=== PATIENT | male | born 1990 | race Caucasian/White ===

== ENCOUNTER 2018-10-27 12:36 | Outpatient (CLI) | payer OTHER | END 2018-10-27 12:37 | disposition home or self-care (01) | LOC: DI 12:36 | PROVIDERS: ATTEND Physician Assistant | DX: R01.1 Cardiac murmur, unspecified (principal) | CPT/HCPCS: 93306 ==

== ENCOUNTER 2018-11-12 10:10 | Outpatient (CLI) | payer OTHER ==
--- NOTE | 2018-11-12 15:14 | MRI Report ---
Reason: LEFT KNEE INTERNAL DERANGEMENT Procedure Date: 11/12/2018 Accession Number: [id number] / [id number] Procedure: MRI - Knee LT W/O CPT Code: FULL RESULT: EXAM: LEFT KNEE MRI WITHOUT CONTRAST EXAM DATE: 11/12/2018 11:10 AM. CLINICAL HISTORY: Left knee internal derangement. COMPARISON: None. TECHNIQUE: Multiplanar, multisequence T1-weighted and fluid-sensitive sequences of the knee without contrast. Other: None. FINDINGS: Bones: No fractures or subluxations. No marrow edema. No bone lesions. Articular Cartilage: Unremarkable. Medial Meniscus: 2 cm nondisplaced horizontal cleavage tear of the posterior horn. Lateral Meniscus: The lateral meniscus is intact. Cruciate Ligaments: The anterior and posterior cruciate ligaments are intact. Collateral Ligaments: The medial collateral and lateral collateral ligamentous structures are intact. Tendons: Quadriceps, patellar and other tendons appear intact. Small amount of fluid in the deep infrapatellar bursa. Musculature: No edema or fatty atrophy. Other: Trace joint fluid. No popliteal cyst. No loose bodies. The medial and lateral retinacula are intact. The subcutaneous tissues and fat pads are unremarkable. IMPRESSION: 1. Nondisplaced horizontal cleavage tear posterior horn medial meniscus. 2. Mild deep infrapatellar bursitis with a small amount of fluid. RADIA
== END 2018-11-12 10:11 | disposition home or self-care (01) ==
LOC: DI 10:10
PROVIDERS: ATTEND Physician Assistant
DX: S83.242A Other tear of medial meniscus, current injury, left knee, initial encounter (principal); M70.52 Other bursitis of knee, left knee

== ENCOUNTER 2019-05-15 11:30 | Outpatient (CLI) | payer OTHER ==
--- NOTE | 2019-05-15 16:43 | XRAY Report ---
Reason: PRODUCTIVE COUGH Procedure Date: 05/15/2019 Accession Number: [id number] / [id number] Procedure: WCP - Chest 2 View X-Ray CPT Code: 34434 FULL RESULT: EXAM: CHEST RADIOGRAPHY EXAM DATE: 05/15/2019 11:30 AM. CLINICAL HISTORY: Cough. COMPARISON: None. TECHNIQUE: 2 views. FINDINGS: Lungs/Pleura: Faint reticulonodular changes are seen in the right midlung region favoring tiny calcified granulomas. The lungs are otherwise clear. There is no effusion, pneumothorax, or vascular congestion. Mediastinum: Heart and mediastinal contours are unremarkable. Other: None. IMPRESSION: Minor reticulonodular changes in the right midlung region, suspect representing loosely clustered tiny calcified granulomas. No consolidation to suggest pneumonia. RADIA
== END 2019-05-15 23:59 | disposition home or self-care (01) ==
LOC: DI.WCP 11:30
PROVIDERS: ATTEND Physician Assistant
DX: R91.8 Other nonspecific abnormal finding of lung field (principal)
CPT/HCPCS: 71046

== ENCOUNTER 2020-10-14 11:49 | Emergency (ER) | payer OTHER ==
[2020-10-14 14:05] VITALS: BP 131/75
[2020-10-14] MEDS ORDERED: IBUPROFEN 800 MG TABLET PO STA (14:13)
--- NOTE | 2020-10-14 14:13 | ED Physician Documentation ---
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 The ankle hurts significantly more than the knee. He is able to walk and bear weight. No other injuries. Review of Systems Constitutional: reports: Reviewed and negative Nose: reports: Reviewed and negative Throat: reports: Reviewed and negative Cardiac: reports: Reviewed and negative PD PAST MEDICAL HISTORY - Past Medical History Past Medical History: No Other Past Medical History: Right knee patella femoral syndrome - Past Surgical History Past Surgical History: No - Present Medications Home Medications: Ambulatory Orders Medication Instructions Recorded Confirmed No Known Home Medications 10/14/20 10/14/20 - Allergies Allergies/Adverse Reactions: Allergies Allergy/AdvReac Type Severity Reaction Status Date / Time No Known Drug Allergies Allergy Verified 10/14/20 11:52 - Social History Does the pt smoke?: Yes Smoking Status: Current every day smoker Does the pt drink ETOH?: Yes Does the pt have substance abuse?: No - Immunizations Immunizations are current?: Yes PD ED PE NORMAL - Vitals Vital signs reviewed: Yes - General General: Alert and oriented X 3, No acute distress - Extremities Extremities: Other (Right knee is nontender, no effusion, full range of motion, normal gait on that extremity. He is limping mildly on the left leg. No proximal fibular tenderness. Very mild lateral malleolar tenderness. No medial malleolar tenderness. More tenderness over the ATFL. No foot tenderness.) - Neuro Neuro: Alert and oriented X 3, Normal speech - Psych Psych: Normal mood, Normal affect Results - Vitals Vitals: Vital Signs - 24 hr 10/14/20 10/14/20 11:53 14:04 Temperature 36 C L 97.8 C H Heart Rate 102 H 77 Respiratory 18 14 Rate Blood Pressure 150/88 H 131/75 H O2 Saturation 97 97 Oxygen O2 Source Room air - Rads (name of study) L ankle XR Radiology: EMP read contemporaneously (no frx) Departure - Departure Disposition: 01 Home, Self Care Clinical Impression: Left ankle sprain Qualifiers: Encounter type: initial encounter Involved ligament of ankle: anterior talofibular ligament Qualified Code(s): S93.492A - Sprain of other ligament of left ankle, initial encounter Condition: Good Record reviewed to determine appropriate education?: Yes Instructions: ED Sprain Ankle Comments: Recheck with your primary physician in a week if not improved, ibuprofen as needed for pain. Return if worse.
--- NOTE | 2020-10-14 14:27 | XRAY Report ---
PROCEDURE: Ankle 3 View LT INDICATIONS: ankle inj TECHNIQUE: 3 views of the ankle were acquired. COMPARISON: None FINDINGS: Bones: No fractures or dislocations. Ankle mortise is normally aligned. No suspicious bony lesions . Soft tissues: Mild ankle edema. Achilles tendon appears normal. IMPRESSION: Mild ankle edema. No visualized acute fracture or dislocation. However, occult injury ca nnot be excluded. Recommend short interval imaging follow-up in 7-10 days as clinically indicated for additional evaluation. Reviewed by: Maribeth Hall MD on 10/14/2020 2:26 PM PDT Approved by: Maribeth Hall MD on 10/14/2020 2:26 PM PDT Station ID: [id number]
--- OUTSIDE RECORDS SUMMARY | 2020-10-20 23:49 | EXTERNAL MEDICAL SUMMARY RPT | Continuity of Care Document ---
:1990 Demographics Phone Unavailable Preferred Language Unknown Marital Status Unknown Episcopal Affiliation Unknown Race Unknown Ethnic Group Unknown Author Organization [facility] Address [address] [place] [address] Phone Social History date description facility [phone]
== END 2020-10-14 14:37 | disposition home or self-care (01) ==
LOC: ED 11:49
DX: S93.492A Sprain of other ligament of left ankle, initial encounter (principal); X50.1XXA Overexertion from prolonged static or awkward postures, initial encounter; Y93.01 Activity, walking, marching and hiking; Y92.511 Restaurant or cafe as the place of occurrence of the external cause; Y99.0 Civilian activity done for income or pay; F17.200 Nicotine dependence, unspecified, uncomplicated
CPT/HCPCS: 1040M; 73610; 99282; 99283; A9270

== ENCOUNTER 2021-12-09 15:30 | Emergency (ER) | payer OTHER ==
--- NOTE | 2021-12-09 17:32 | ED Physician Documentation ---
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 Better with pressure. Worse with movement. Tetanus up-to-date. No numbness or tingling. Not anticoagulated. Patient is right-handed. Review of Systems Constitutional: denies: Fever Skin: denies: Rash PD PAST MEDICAL HISTORY - Past Medical History Past Medical History: No - Past Surgical History Past Surgical History: No - Present Medications Home Medications: Ambulatory Orders Medication Instructions Recorded Confirmed No Known Home Medications 10/14/20 10/14/20 - Allergies Allergies/Adverse Reactions: Allergies Allergy/AdvReac Type Severity Reaction Status Date / Time No Known Drug Allergies Allergy Verified 12/09/21 15:34 - Social History Does the pt smoke?: Yes Smoking Status: Current every day smoker Does the pt drink ETOH?: Yes Does the pt have substance abuse?: No - Immunizations Immunizations are current?: Yes PD ED PE NORMAL - Vitals Vital signs reviewed: Yes - General General: Alert and oriented X 3, No acute distress - HEENT HEENT: Moist mucous membranes - Derm Derm: Warm and dry - Neuro Neuro: Alert and oriented X 3 - Psych Psych: Normal mood, Normal affect PD ED PE EXPANDED - Extremities BAMBI UE/Hands Visual: 1 - laceration (partial avulsion laceration. 1cm, round. NVI. tendon intact.) Results - Vitals Vitals: Vital Signs - 24 hr 12/09/21 12/09/21 15:34 17:41 Temperature 36.5 C 36.5 C Heart Rate 90 88 Respiratory 16 16 Rate Blood Pressure 138/83 H 130/80 O2 Saturation 98 100 Oxygen O2 Source Room air Procedures - Laceration (location) R index finger Length in cm: 1 Wound type: Curved (round), Flap, Superficial, Clean Neurovascular status: Sensory intact, Motor intact, Vascular intact Tendon involvement: Tendon intact Wound preparation: Irrigated copiously NS Skin layer closure: Dermabond (T ring closure system) Other: Patient tolerated well, No complications, Neurovascular intact, Dressing applied, Tetanus UTD PD MEDICAL DECISION MAKING - ED course Complexity details: considered differential, d/w patient ED course: 31-year-old male with a right index finger laceration. T ring closure system was used to close the avulsion. There is still a attachment to the finger at the base of the avulsion. Neurovascular intact. Warnings of infection and instructions on wound care given at bedside. Also counseled on how to minimize scarring. Patient counseled regarding signs and symptoms for which I believe and urgent re-evaluation would be necessary. Patient with good understanding of and agreement to plan and is comfortable going home at this time This document was made in part using voice recognition software. While efforts are made to proofread this document, sound alike and grammatical errors may occur. L&I paperwork filled out Departure - Departure Disposition: 01 Home, Self Care Clinical Impression: Finger laceration Qualifiers: Encounter type: initial encounter Finger: index finger Damage to nail status: without damage Foreign body presence: without foreign body Laterality: right Qualified Code(s): S61.210A - Laceration without foreign body of right index finger without damage to nail, initial encounter Condition: Good Instructions: ED Laceration Ext Skin Glue Follow-Up: your,doctor as needed [Other] - As Needed Comments: Please follow-up with your doctor as needed. The bandages should fall off in about a week. Keep the wound clean. As we discussed the small portion of avulsed skin may re-adhere or it may off and there may be a scar underneath. Return for redness, swelling or drainage from the wound. Do not apply ointment as this may dissolve the glue. The finger splint should help protect the area as well. Discharge Date/Time: 12/09/21 17:41
[2021-12-09 17:42] VITALS: BP 130/80
== END 2021-12-09 17:41 | disposition home or self-care (01) ==
LOC: ED 15:30
DX: S61.210A Laceration without foreign body of right index finger without damage to nail, initial encounter (principal); W31.82XA Contact with other commercial machinery, initial encounter; Y99.0 Civilian activity done for income or pay; F17.200 Nicotine dependence, unspecified, uncomplicated
CPT/HCPCS: 1040M; 12001; 99282

== ENCOUNTER 2021-12-30 11:48 | Emergency (ER) | payer OTHER ==
[2021-12-30 12:04] VITALS: BP 134/68
[2021-12-30 12:18] LABS: BILIRUBIN,URINE NEGATIVE (NEGATIVE); GLUCOSE, URINE (UA) NEGATIVE (NEGATIVE); KETONES,URINE (UA) NEGATIVE (NEGATIVE); LEUKOCYTE ESTERASE, URINE NEGATIVE (NEGATIVE); NITRITE,URINE NEGATIVE (NEGATIVE); OCCULT BLOOD,URINE NEGATIVE (NEGATIVE); PROTEIN,URINE NEGATIVE (NEGATIVE); UROBILINOGEN,URINE 0.2 (NORMAL) E.U./dL (NORMAL)
[2021-12-30 12:20] LABS: BASOPHILS % (AUTO) 0.5 %; EOSINOPHILS # (AUTO) 0.1 10^3/uL (0.0-0.7); EOSINOPHILS % (AUTO) 1.4 %; HCT - HEMATOCRIT 45.1 % (42.0-52.0); HGB - HEMOGLOBIN 15.3 g/dL (14.0-18.0); LYMPHOCYTES % (AUTO) 34.4 %; MEAN CORPUSCULAR HEMOGLOBIN 29.3 pg (27.0-31.0); MEAN CORPUSCULAR HGB CONC 33.9 g/dL (32.0-36.0); MEAN CORPUSCULAR VOLUME 86.4 fL (80.0-94.0); MEAN PLATELET VOLUME 9.3 fL (7.4-11.4); MONOCYTES # (AUTO) 0.6 10^3/uL (0.0-1.0); MONOCYTES % (AUTO) 7.5 %; NEUTROPHILS # (AUTO) 4.8 10^3/uL (1.5-6.6); NEUTROPHILS % (AUTO) 55.7 %; PLT - PLATELET COUNT 303 10^3/uL (130-450); RED BLOOD COUNT 5.22 10^6/uL (4.70-6.10); RED CELL DISTRIBUTION WIDTH 12.7 % (12.0-15.0); WHITE BLOOD COUNT 8.6 x10^3/uL (4.8-10.8)
[2021-12-30 12:31] LABS: ALBUMIN 4.4 g/dL (3.2-5.5); ALBUMIN/GLOBULIN RATIO 1.4 (1.0-2.2); BILIRUBIN,TOTAL 0.6 mg/dL (0.2-1.0); CALCIUM 9.4 mg/dL (8.5-10.3); POTASSIUM 3.9 mmol/L (3.5-5.0); TOTAL PROTEIN 7.5 g/dL (6.7-8.2)
[2021-12-30 12:44] LABS: CLARITY,URINE CLEAR (CLEAR)
--- NOTE | 2021-12-30 14:06 | ED Physician Documentation ---
History of Present Illness - Stated complaint Stated Complaint: RT SIDE ABD PX - Chief complaint Chief Complaint: Abd Pain - Additonal information Additional information: 31-year-old male presents emergency department for evaluation of acute abdominal pain that began last night mostly on the right side. No fevers nausea or vomiting. No melena hematochezia or changes in bowel habits. He does state that when he was 6 years old he did have a GI bleed which his mom tells him was due to a polyp. He otherwise has no pertinent past surgical history. Review of Systems Constitutional: reports: Reviewed and negative Throat: reports: Reviewed and negative Cardiac: reports: Reviewed and negative Respiratory: reports: Reviewed and negative GI: reports: Abdominal Pain. denies: Nausea, Vomiting : reports: Reviewed and negative Skin: reports: Reviewed and negative PD PAST MEDICAL HISTORY - Past Surgical History Past Surgical History: No - Present Medications Home Medications: Ambulatory Orders Medication Instructions Recorded Confirmed No Known Home Medications 10/14/20 12/30/21 - Allergies Allergies/Adverse Reactions: Allergies Allergy/AdvReac Type Severity Reaction Status Date / Time No Known Drug Allergies Allergy Verified 12/30/21 12:02 - Social History Does the pt smoke?: Yes Smoking Status: Current every day smoker Does the pt drink ETOH?: Yes Does the pt have substance abuse?: No - Immunizations Immunizations are current?: Yes PD ED PE NORMAL - General General: Alert and oriented X 3, No acute distress, Well developed/nourished - HEENT HEENT: Atraumatic - Neck Neck: Supple, no meningeal sign - Cardiac Cardiac: RRR, No murmur - Respiratory Respiratory: No respiratory distress - Abdomen Abdomen: Normal bowel sounds, Soft. No: Non tender (Equivocal McBurney's right lower quadrant. 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 Eye Opening: Spontaneous Motor: Obeys Commands Verbal: Oriented GCS Score: 15 Results - Vitals Vitals: Vital Signs - 24 hr 12/30/21 12:02 Temperature 37.1 C Heart Rate 82 Respiratory 19 Rate Blood Pressure 134/68 H O2 Saturation 100 Oxygen O2 Source Room air - Labs Labs: Laboratory Tests 12/30/21 12/30/21 12/30/21 12:10 12:13 12:13 WBC 8.6 RBC 5.22 Hgb 15.3 Hct 45.1 MCV 86.4 MCH 29.3 MCHC 33.9 RDW 12.7 Plt Count 303 MPV 9.3 Neut # (Auto) 4.8 Lymph # (Auto) 3.0 Edmunds # (Auto) 0.6 Eos # (Auto) 0.1 Baso # (Auto) 0.0 Absolute Nucleated RBC 0.00 Nucleated RBC % 0.0 Sodium 138 Potassium 3.9 Chloride 105 Carbon Dioxide 24 Anion Gap 9.0 BUN 15 Creatinine 1.0 Estimated GFR (MDRD) 87 L Glucose 106 H Calcium 9.4 Total Bilirubin 0.6 AST 20 ALT 31 Alkaline Phosphatase 62 Total Protein 7.5 Albumin 4.4 Globulin 3.1 Albumin/Globulin Ratio 1.4 Lipase 39 Urine Color YELLOW Urine Clarity CLEAR Urine pH 6.0 Ur Specific [place] 1.025 Urine Protein NEGATIVE Urine Glucose (UA) NEGATIVE Urine Ketones NEGATIVE Urine Occult Blood NEGATIVE Urine Nitrite NEGATIVE Urine Bilirubin NEGATIVE Urine Urobilinogen 0.2 (NORMAL) Ur Leukocyte Esterase NEGATIVE Ur Microscopic Review NOT INDICATED Urine Culture Comments NOT INDICATED - Rads (name of study) CT abd Radiology: Final report received (Terminal ileitis and typhlitis. Differential considerations include infection or inflammation. Normal appendix.) PD MEDICAL DECISION MAKING - ED course Complexity details: reviewed results, re-evaluated patient, considered differential, d/w patient ED course: 31-year-old male presents emergency department for evaluation of acute onset right lower quadrant abdominal pain. No fevers nausea vomiting diarrhea or bloody stools. He does report a history of a GI bleed when he was 6 years of age which ultimately required an endoscopy and he was found to have polyps. Today on presentation he does have tenderness right lower quadrant with an equivocal McBurney's. His screening labs however are essentially unremarkable. A CT of the abdomen shows a terminal ileitis and typhlitis. Given an otherwise benign appearance lack of fever or leukocytosis or bloody stools will defer any further treatment. Recommend Tylenol and ibuprofen. However given the history of GI bleed when he was 6 and now findings of a terminal ileitis/typhlitis he likely would benefit from referral to a lay out former for repeat colonoscopy/endoscopy to determine if he has an inflammatory bowel condition. Emergent return precautions otherwise discussed. Departure - Departure Disposition: 01 Home, Self Care Clinical Impression: Typhlitis Terminal ileitis Qualifiers: Digestive disease complication type: without complication Qualified Code(s): K50.00 - Crohn's disease of small intestine without complications Condition: Stable Record reviewed to determine appropriate education?: Yes Comments: You are seen today in the emergency department because you develop sudden pain in the right lower quadrant of your abdomen yesterday. Today in the emergency department your screening labs including a CBC and electrolytes are all essentially normal. We did do a CT of your abdomen that shows terminal ileitis and typhlitis. Your appendix is normal however. These conditions are sometimes seen in inflammatory bowel disorders such as Crohn's or colitis. Because you have the history of a gastrointestinal bleed when you were a child it is important that you discuss this ED visit with your primary care provider. You would benefit from referral to a lay out former for further evaluation that could include colonoscopy or an EGD. In general to manage the pain I do recommend you take Tylenol or ibuprofen [id number] for discomfort. If at any point you find that your symptoms are worsening, you have severe pain, fevers, uncontrolled vomiting, black or bloody stools or uncontrolled diarrhea you need to return immediately to the ER for second evaluation
--- NOTE | 2021-12-30 14:53 | CT Report ---
PROCEDURE: Abdomen/Pelvis WO INDICATIONS: RLQ abd pain TECHNIQUE: Noncontrast 5 mm thick sections acquired from the diaphragms to the symphysis. 5 mm coronal and sagi ttal reformats were then performed. For radiation dose reduction, the following was used: automated exposure control, adjustment of mA and/or kV according to patient size. COMPARISON: None. FINDINGS: Image quality: Excellent. ABDOMEN: Lung bases: Lung bases are clear. Heart size is normal. Solid organs: Liver and spleen are normal in size. Gallbladder is within normal limits Pancreas is normal in contours. No adrenal nodules. Kidneys are normal in size, without hydronephrosis or neph rolithiasis. Peritoneum and bowel: Evaluation of the bowel is limited secondary to lack of both intravenous and or al contrast. Stomach is within normal limits. Small bowel is nondistended. There is possible thickeni ng of the terminal ileum and cecum. There is mild fat stranding surrounding the terminal ileum and ce cum. Colon is nondistended. Appendix is normal. No free fluid or air. Nodes and vessels: No retroperitoneal or mesenteric adenopathy by size criteria. Aorta and inferior vena cava are normal in caliber. Miscellaneous: No ventral hernias. PELVIS: Genitourinary: Bladder wall thickness is normal. Miscellaneous: No inguinal hernias or adenopathy. Bones: No suspicious bony lesions. No vertebral body compression fractures. IMPRESSION: 1. Terminal ileitis and typhlitis. Differential considerations include infection, or inflammation. 2. Normal appendix. Reviewed by: Jennie Alston MD on 12/30/2021 2:51 PM PDT Approved by: Jennie Alston MD on 12/30/2021 2:51 PM PDT Station ID: [id number]
== END 2021-12-30 15:40 | disposition home or self-care (01) ==
LOC: ED 11:48
DX: K37 Unspecified appendicitis (principal); K50.00 Crohn's disease of small intestine without complications; F17.200 Nicotine dependence, unspecified, uncomplicated
CPT/HCPCS: 36415; 80053; 81001; 81003; 83690; 85025; 87086; 99282; 99284

== ENCOUNTER 2023-12-21 13:30 | Outpatient (CLI) | payer OTHER ==
--- NOTE | 2023-12-21 15:20 | XRAY Report ---
PROCEDURE: Hip w/Pelvis 2-3V RT INDICATIONS: STRAIN OF MUSCLE, FASCIA AND TENDON OF RIGHT HIP TECHNIQUE: 2 views of the hip were acquired. COMPARISON: CT abdomen and pelvis, 12/30/2021. FINDINGS: Bones: No fractures or dislocations. No suspicious bony lesions. There is an osteochondroma below d darius inferior pubic ramus. Soft tissues: No suspicious soft tissue calcifications or masses. IMPRESSION: 1. No acute bony abnormality. 2. An osteochondroma below the inferior pubic ramus. Since osteochondroma can undergo sarcomatous tra nsformation, consider MRI with and without contrast for further evaluation. Reviewed by: Debbie Han MD on 12/21/2023 3:18 PM PDT Approved by: Debbie Han MD on 12/21/2023 3:18 PM PDT Station ID: [id number]
--- NOTE | 2023-12-21 15:44 | XRAY Report ---
PROCEDURE: Lumbar Spine 2-3V INDICATIONS: STRAIN OF MUSCLE, FASCIA AND TENDON OF LOWER BACK TECHNIQUE: 2 views of the lumbar spine were acquired. COMPARISON: None. FINDINGS: Surgical change: None. Bones: 5 [id number] vertebrae are present. There is normal bony alignment. No vertebral body co mpression fractures. No suspicious bony lesions. Soft tissues: Overlying bowel gas pattern is normal. No suspicious soft tissue calcifications. IMPRESSION: Unremarkable lumbar spine plain films. No acute bony abnormality. Reviewed by: Michel Deluna MD on 12/21/2023 3:43 PM PDT Approved by: Michel Deluna MD on 12/21/2023 3:43 PM PDT Station ID: [id number]
== END 2023-12-21 15:02 | disposition home or self-care (01) ==
LOC: DI.N 13:30
PROVIDERS: ATTEND Family Medicine
DX: S39.012A Strain of muscle, fascia and tendon of lower back, initial encounter (principal); D16.8 Benign neoplasm of pelvic bones, sacrum and coccyx